=== PATIENT | female | born 1960 | race Caucasian/White ===

== ENCOUNTER 2019-12-08 10:13 | Inpatient (IN) ==
[2019-12-08] MEDS ORDERED: PIPERACILLIN/TAZOBACTAM 3,375 MG in SODIUM CHLORIDE 0.9% 100 ML IV STA (10:46)
[2019-12-08] MEDS ORDERED: ONDANSETRON 4 MG/2 ML VIAL IV STA (10:50)
[2019-12-08] MEDS ORDERED: SODIUM CHLORIDE 0.9% 1,000 ML IV STA (10:50)
[2019-12-08] MEDS ORDERED: ALBUTEROL NEB SOLN 5 MG/ML 20 ML/BOTTLE CONT NEB SCH (11:00)
[2019-12-08 12:05] LABS: Basophils % 0.2 % (0.0-0.8); Hematocrit 43.2 VOL% (35.7-47.0); Hemoglobin 13.8 GM/DL (12.0-16.0); Immature Granulocytes % 0.8 %; Immature Granulocytes Absolute 0.17 #; Lymphocytes # 3.2 10*3/uL (1.4-4.0); Lymphocytes % 15.1 % (21.3-54.2); Mean Corpuscular HGB Conc 31.9 GM/DL (32-36); Mean Corpuscular Volume 100.9 FL (87-102); Mean Platelet Volume 9.8 FL (9.6-12.0); Monocytes % 5.7 % (1.7-12.7); Neutrophils % 78.2 % (38.7-73.9); Platelet Count 331 T/CUMM (130-400); Red Blood Count 4.28 MC/CUMM (3.8-5.5); White Blood Count 21.5 T/CUMM (4-12)
[2019-12-08 12:23] LABS: INR 1.1; PT Patient Result 11.8 SECS (9.8-11.9); Partial Thromboplastin Time 27.8 SECS (23.9-33.8)
[2019-12-08 12:30] LABS: Band Neutrophils 4 % (0-10); Lymphocytes 17 % (20-55); Platelet Estimate Normal; Segmented Neutrophils 73 % (50-85); Total Cells Counted 100
[2019-12-08 12:31] LABS: Anisocytosis Slight; Macrocytosis 1+
[2019-12-08 12:39] LABS: Albumin 2.1 G/DL (3.4-5.0); Bilirubin,Total 0.4 MG/DL (0.2-1.0); Calcium 7.6 MG/DL (8.5-10.1); Osmolality,Calculated 274.1 MOS/KG (273-304); Total Protein 6.9 G/DL (6.4-8.3)
[2019-12-08 12:51] LABS: Apearance,Urine Slightly Hazy (Clear); Bacteria,Urine Few /HPF (Few); Bilirubin,Urine Negative (Negative); Blood, Urine Negative (Negative); Glucose,Urine (UA) Negative (Negative); Hyaline Casts,Urine 119 /LPF (0-3); Ketones,Urine Negative (Negative); Mucus,Urine Moderate /LPF (Occasional); Nitrite,Urine Negative (Negative); Protein,Urine 30 MG/DL; RBC,Urine 5 /HPF (0-4); Squamous Epithelial Cell,Urine Occasional /HPF (0-10); Urine Color Amber (Yellow); Urine Specific Gravity 1.026 (1.001-1.035); WBC,Urine 19 /HPF (0-6)
[2019-12-08] MEDS ORDERED: GLUCAGON 1 MG VIAL IM PRN (12:54)
[2019-12-08] MEDS ORDERED: DEXTROSE 50% 25 GM/50 ML VIAL IV PRN (12:54)
[2019-12-08] MEDS ORDERED: SODIUM CHLORIDE 0.9% 1,000 ML IV SCH (13:00)
[2019-12-08] MEDS ORDERED: ENOXAPARIN 40 MG/0.4 ML SYRINGE SUBCUT SCH (13:00)
[2019-12-08] MEDS ORDERED: ALBUTEROL NEB SOLN 5 MG/ML 20 ML/BOTTLE CONT NEB STA (13:29)
[2019-12-08 13:35] LABS: Thyroid Stimulating Hormone 5.76 uIU/ml (0.358-3.74)
[2019-12-08 14:02] LABS: ABG Base Excess -3.9 MMOL/L (-2.5-2.5); ABG HCO3 20.9 MMOL/L (20-26); ABG Oxygen Saturation 82.7 % (95-100); ABG PCO2 27.4 MM HG (35-48); ABG PH 7.441 (7.35-7.45); ABG PO2 48.8 MM HG (80-95); Allen Test Positive
[2019-12-08] MEDS ORDERED: MORPHINE 4 MG/1 ML VIAL IV PRN (14:44)
[2019-12-08] MEDS ORDERED: LORazepam 2 MG/1 ML VIAL IV PRN (14:44)
[2019-12-08 15:35] VITALS: BP 97/61
[2019-12-08] MEDS ORDERED: PIPERACILLIN/TAZOBACTAM 3,375 MG in SODIUM CHLORIDE 0.9% 100 ML IV SCH (20:00)
[2019-12-09 07:59] LABS: SARS-CoV-2 Total Ab Interp Reactive
== END 2019-12-08 17:55 | disposition expired | DRG 177 ==
LOC: N.ED 10:13 → N.EDINP 12:40 → N.2W 14:59 → N.2E 16:31
PROVIDERS: ADMIT Internal Medicine; ATTEND Internal Medicine